=== PATIENT | female | born 1970 | race Caucasian/White ===

== ENCOUNTER 2023-01-01 08:01 | Emergency (ER) | payer MEDICARE, SELFPAY ==
[2023-01-01] VITALS (20 sets, daily range): BP systolic 148–174; BP diastolic 89–109; PULSE 78–97; RESP 10–21; TEMP 36.6; O2SAT 96–100
--- NOTE | ~2023-01-01 | CT_ITS ---
EXAMINATION: CT brain wo con DATE: 01/01/2023 08:53 INDICATION: Patient fell and struck head. Patient taking Eliquis. TECHNIQUE: Computed tomography (CT) of the head was performed without intravenous contrast. The mA wa s adjusted according to patient size. Iterative reconstruction technique was employed. Exam dose: 75 6.67 mGy-cm total exam DLP. COMPARISON: None FINDINGS: Vertebral and bilateral carotid siphon internal carotid artery calcification. There is nons pecific diminished attenuation of the cerebral white matter, likely due to chronic small vessel ische michelle changes. No intracranial mass lesion or hemorrhage or cerebrovascular accident. No midline shift or mass effec t effect. Normal ventricular size. No subdural or epidural hematoma is detected. There is opacified left ethmoid air cell. Mucous retention cyst or polyp is noted at the lower aspect of each maxillary sinus, with mild left maxillary sinus mucoperiosteal thickening. The paranasal sin uses and mastoid air cells are otherwise unremarkable. No fracture or bone destruction of the cranial vault. IMPRESSION: No skull fracture or acute intracranial finding Cerebral atherosclerosis and chronic small vessel ischemic changes of the cerebral white matter Mucous large cyst or polyp in the floor of each maxillary sinus, mild left maxillary sinus no periost eal thickening, opacified left ethmoid air cell Reviewed, dictated and finalized at [facility]. Reviewed, dictated and finalized at [facility]. IMPRESSION: No skull fracture or acute intracranial finding Cerebral atherosclerosis and chronic small vessel ischemic changes of the cereb ral white matter Mucous large cyst or polyp in the floor of each maxillary sinus, mild left maxi llary sinus no periosteal thickening, opacified left ethmoid air cell
--- NOTE | ~2023-01-01 | XR_ITS ---
XR chest 2V DATE: 01/01/2023 09:01 INDICATION: Chest pain TECHNIQUE: AP and lateral views COMPARISON: None FINDINGS: Borderline heart size. No hilar or mediastinal enlargement. No pulmonary infiltrate or cons olidation, pleural effusion or pulmonary vascular congestion or pneumothorax. Status post anterior and posterior cervical spine surgical fusion. Diffuse idiopathic skeletal hyperostosis of the thoracic spine. IMPRESSION: Borderline heart size; no active pulmonary disease Reviewed, dictated and finalized at [facility].
--- NOTE | 2023-01-01 08:03 | ECG_ITS ---
Measurements Intervals [place] Rate: 90 P: 21 ID: [id number] QRS: 35 QRSD: 102 T: 78 QT: 345 QTc: 423 Interpretive Statements SINUS RHYTHM POOR R-WAVE PROGRESSION NONSPECIFIC T-WAVE ABNORMALITY ABNORMAL ECG NO PREVIOUS ECG AVAILABLE FOR COMPARISON Electronically Signed On 01-01-2023 15:28:33 CDT by Earle Merchant M.D.
[2023-01-01 08:38] LABS: Basophils Absolute Auto 0.1 K/mm3 (0.0-0.1); Basophils Percent Auto 0.9 % (0.2-1.2); Hematocrit 38.3 % (37.0-47.0); Hemoglobin 12.1 g/dL (12.0-15.0); Immature Granulocyte Absolute 0.03 K/mm3 (0.00-0.031); Immature Granulocyte Percent A 0.4 % (0-0.5); Lymphocytes Absolute Auto 1.38 K/mm3 (0.9-3.2); Lymphocytes Percent Auto 17.5 % (18.3-44.2); Mean Corpuscular HGB Conc 31.6 g/dl (32-36); Mean Corpuscular Hemoglobin 30.3 pg (26-34); Mean Platelet Volume 9.4 fl (7.4-10.4); Monocytes Absolute Auto 0.6 K/mm3 (0.1-0.6); Monocytes Percent Auto 7.4 % (2.6-8.5); Neutrophils Absolute Auto 5.8 K/mm3 (1.3-6.7); Neutrophils Percent Auto 73.8 % (45.5-73.1); Platelet Count Result 298 k/mm3 (150-375); Red Blood Count 3.99 M/mm3 (4.2-5.4); White Blood Count 7.9 K/mm3 (4.5-10.0)
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
[2023-01-01 08:51] LABS: Partial Thromboplastin Time 26.3 SECONDS (22.3-36.8)
[2023-01-01] MEDS: ASPIRIN 81 MG CHEWABLE TABLET 324 MG PO (08:53)
[2023-01-01] MEDS: METOCLOPRAMIDE HCL INJ 10 MG/2 ML VIAL IV PUSH (09:01)
[2023-01-01] MEDS: diphenhydrAMINE HCl INJ 50 MG/ML VIAL 25 MG IV PUSH (09:01)
[2023-01-01 09:09] LABS: Alanine Aminotransferase 33 U/L (6-35); Albumin Level 3.8 g/dL (3.5-5.1); Alkaline Phosphatase 89 U/L (38-126); Anion Gap 7 mmol/L (8-16); Aspartate Amino Transferase 39 U/L (14-36); Bilirubin,Total 0.6 mg/dL (0.2-1.3); Blood Urea Nitrogen 23 mg/dL (7-17); Calcium 8.9 mg/dL (8.4-10.2); Carbon Dioxide 24 mmol/L (22-30); Chloride 105 mmol/L (98-107); Estimated Glomerular Filt Rate > 60; Glucose 264 mg/dL (65-110); Lipase 96 U/L (23-300); Potassium 4.2 mmol/L (3.4-5.0); Sodium 136 mmol/L (137-145)
[2023-01-01 10:06] LABS: Troponin I 0.016 ng/mL (0.000-0.034)
[2023-01-01 12:13] LABS: Troponin I < 0.012 ng/mL (0.000-0.034)
== END 2023-01-01 12:40 | disposition home or self-care (01) ==
PROVIDERS: Emergency Provider Emergency Medicine
DX: R07.9 Chest pain, unspecified (principal); S09.90XA Unspecified injury of head, initial encounter; I25.2 Old myocardial infarction; W10.9XXA Fall (on) (from) unspecified stairs and steps, initial encounter
CPT/HCPCS: 36415; 70450; 71046; 80053; 83690; 84484; 85025; 85610; 85730; 93005; 96365; 96375; 99284; A9270; J0131; J1200; J2765

== ENCOUNTER 2023-01-03 15:42 | Emergency (ER) | payer MEDICARE, SELFPAY ==
--- NOTE | ~2023-01-03 | XR_ITS ---
EXAM: XR toe 1st LT min 2V DATE: 01/03/2023 16:29 HISTORY: trauma today caught toe in slidinging door/distal pain . COMPARISON: None available. FINDINGS: Normal mineralization. No fracture or dislocation. No lytic or blastic lesion. Mild scatte red degenerative changes. No erosion or periosteal change. Medial soft tissue defect at the great toe . IMPRESSION: No acute osseous finding in the left first toe. Reviewed, dictated and finalized at location [facility].
[2023-01-03 15:59] VITALS: BP 156/91; PULSE 88; RESP 16; TEMP 36.9; O2SAT 99
--- NOTE | 2023-01-03 16:20 | ED.LOWEXIN ---
HPI - Extremity Injury (Lower) General Chief Complaint: Extremity Injury, Lower Stated Complaint: Lt Foot Injury,Medication Refills Time Seen by Provider: 01/03/23 16:08 Source: patient and RN notes reviewed Mode of arrival: ambulatory Limitations: no limitations History of Present Illness HPI Narrative: Patient presents today complaining of an injury to her left 1st toe. States her toe was slammed in a van door this morning at 6am and a screw that was sticking out punctured the skin between her 4th and 5th toes on the left foot. States she cleaned the areas. Upon arrival, she is walking around with no shoes on. She is up-to-date on her tetanus vaccine. She currently rates her pain 05/23 and has been taking Tylenol without relief. History of diabetes and neuropathy. She is also requesting refills of some of her medications. 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 Related Data Home Medications Medication Instructions Recorded Confirmed albuterol sulfate 90 mcg/actuation 2 puff inhalation DAILY 01/03/23 01/03/23 aerosol inhaler amlodipine 5 mg tablet 5 mg PO DAILY 01/03/23 01/03/23 apixaban 5 mg tablet (Eliquis) 5 mg PO DAILY 01/03/23 01/03/23 aripiprazole 20 mg tablet 20 mg PO DAILY 01/03/23 01/03/23 atorvastatin 40 mg tablet 40 mg PO DAILY 01/03/23 01/03/23 carvedilol 12.5 mg tablet 12.5 mg PO DAILY 01/03/23 01/03/23 duloxetine 60 mg capsule,delayed 60 mg PO DAILY 01/03/23 01/03/23 release fenofibrate 54 mg tablet 54 mg PO DAILY 01/03/23 01/03/23 gabapentin 800 mg tablet 800 mg PO TID 01/03/23 01/03/23 methocarbamol 500 mg tablet 500 mg PO TID 01/03/23 01/03/23 omeprazole 20 mg capsule,delayed 20 mg PO DAILY 01/03/23 01/03/23 release pregabalin 300 mg capsule 300 mg PO BID 01/03/23 01/03/23 valsartan 160 mg tablet 160 mg PO DAILY 01/03/23 01/03/23 vortioxetine 20 mg tablet 20 mg PO DAILY 01/03/23 01/03/23 (Trintellix) Allergies Allergy/AdvReac Type Severity Reaction Status Date / Time levofloxacin [From Levaquin] Allergy Severe Anaphylaxis Verified 01/03/23 16:04 nitroglycerin AdvReac Severe Palpitation Verified 01/03/23 16:19 s buspirone AdvReac Mild Rash Verified 01/03/23 16:19 morphine AdvReac Mild Rash Verified 01/03/23 16:19 Review of Systems Review of Systems: CONSTITUTIONAL: Denies body aches, fever, chills, or sweats. EYES: Denies visual changes, redness, or discharge. ENT: Denies rhinorrhea, congestion, sore throat, or otalgia. CARDIOVASCULAR: Denies chest pain, palpitations, or edema. RESPIRATORY: Denies cough or dyspnea. GASTROINTESTINAL: Denies abdominal pain, nausea, vomiting, or diarrhea. GENITOURINARY: Denies dysuria or hematuria. SKIN: Denies rash, itching. + wound between left 4th and 5th toes MUSCULOSKELETAL: Denies back pain, or myalgia.+ left 1st toe injury NEUROLOGIC: Denies headache, numbness, tingling, or weakness. PSYCH: Denies depression or anxiety. [facility] Past Medical History Medical History (Updated 01/03/23 @ 16:53 by Adriana De Souza, [facility], ) Diabetes GERD (gastroesophageal reflux disease) History of DVT (deep vein thrombosis) History of pulmonary embolism Neuropathy Comments At time of signature, I have reviewed and agree with nursing past medical, surgical, social and family history unless otherwise noted. Please see nursing chart for further information. There is no relevant family history pertinent to the presenting complaint Exam Narrative: GENERAL: Well-appearing, well-nourished, and in no acute distress. HEAD: Normocephalic, atraumatic. EYES: EOMI. No redness or drainage. Conjunctivae normal. ENT: Mucous membranes pink and moist. NECK: Normal AROM. CHEST: No respiratory distress. EXTREMITIES: Left 1st toe with approximately 1.5 cm round skin avulsion to the lateral tip. No edema noted. Distal sensation intact. Capillary refill normal. Radial pulse normal. Large moist puncture wound betw
== END 2023-01-03 17:09 | disposition home or self-care (01) ==
PROVIDERS: Emergency Provider Nurse Practitioner
DX: S91.102A Unspecified open wound of left great toe without damage to nail, initial encounter (principal); S91.332A Puncture wound without foreign body, left foot, initial encounter; W23.0XXA Caught, crushed, jammed, or pinched between moving objects, initial encounter; E11.40 Type 2 diabetes mellitus with diabetic neuropathy, unspecified; K21.9 Gastro-esophageal reflux disease without esophagitis; Z86.718 Personal history of other venous thrombosis and embolism; Z86.711 Personal history of pulmonary embolism
CPT/HCPCS: 73660; 99213; G0463